=== PATIENT | female | born 1955 | race Caucasian/White ===

== ENCOUNTER 2019-08-01 16:37 | Observation (INO) | payer BC ==
--- NOTE | 2019-08-01 17:18 | ERPHSYRPT ---
- History of Present Illness Time Seen by Provider: 08/01/19 17:18 Historian: patient Exam Limitations: no limitations Patient Subjective Stated Complaint: pt here for right sided abd pain since yesterday, with some nausea, no vomiting, decrease eating today,no fever. pt has ring worm now Triage Nursing Assessment: pt alert, skin w/d/p. resp easy, skin w/d/p. abd soft but tneder to right side, no edema , moves all ext well Physician History: Is a 63-year-old white female who presents with 1 day history of worsening right side abdominal pain. The point of maximal tenderness is in the right lower quadrant at McBurney's point. Patient has had nausea but no vomiting. She patient has had a bilateral tubal ligation in the past but the remainder of her organs are still in place. Is had associated decreased appetite. Denies diarrhea, she denies fever, she denies flulike symptoms. Timing/Duration: yesterday Activities at Onset: none Quality: pressure, sharpness, stabbing Abdominal Pain Onset Location: RLQ Pain Radiation: no radiation Severity of Pain-Max: moderate Severity of Pain-Current: moderate Modifying Factors: Improves With: nothing Associated Symptoms: loss of appetite, nausea, No fever/chills Previous symptoms: no prior history Allergies/Adverse Reactions: aspirin Allergy (Verified 08/01/19 17:11) Penicillins Allergy (Verified 08/01/19 17:11) Sulfa (Sulfonamide Antibiotics) Allergy (Verified 08/01/19 17:11) Home Medications: No Reportable Medications [No Reported Medications] 08/01/19 [History] Hx Tetanus, Diphtheria Vaccination/Date Given: No Hx Influenza Vaccination/Date Given: No Hx Pneumococcal Vaccination/Date Given: No Immunizations Up to Date: Yes - Review of Systems Constitutional: No Symptoms Eyes: No Symptoms Ears, Nose, & Throat: No Symptoms Respiratory: No Symptoms Cardiac: No Symptoms Abdominal/Gastrointestinal: Abdominal Pain, Nausea Genitourinary Symptoms: No Symptoms Musculoskeletal: No Symptoms Skin: No Symptoms Neurological: No Symptoms Psychological: No Symptoms Endocrine: No Symptoms Hematologic/Lymphatic: No Symptoms Immunological/Allergic: No Symptoms All Other Systems: Reviewed and Negative - Past Medical History Pertinent Past Medical History: No Neurological History: No Pertinent History ENT History: No Pertinent History Cardiac History: No Pertinent History Respiratory History: No Pertinent History Endocrine Medical History: No Pertinent History Musculoskeletal History: No Pertinent History GI Medical History: No Pertinent History History: No Pertinent History Psycho-Social History: No Pertinent History Female Reproductive Disorders: No Pertinent History - Past Surgical History Past Surgical History: Yes Neuro Surgical History: No Pertinent History Cardiac: No Pertinent History Respiratory: No Pertinent History Gastrointestinal: No Pertinent History Genitourinary: No Pertinent History Musculoskeletal: No Pertinent History Female Surgical History: Tubal Ligation - Social History Smoking Status: Former smoker Exposure to second hand smoke: No Drug Use: none Patient Lives Alone: Yes - Female History Hx Last Menstrual Period: post Hx Now: No - Nursing Vital Signs Nursing Vital Signs: Initial Vital Signs Temperature 98.5 F 08/01/19 16:58 Pulse Rate 81 08/01/19 16:58 Respiratory Rate 16 08/01/19 16:58 Blood Pressure 121/90 08/01/19 16:58 O2 Sat by Pulse Oximetry 100 08/01/19 16:58 Pain Scale Pain Intensity 8 - Physical Exam General Appearance: mild distress, alert Eye Exam: PERRL/EOMI, eyes nml inspection Ears, Nose, Throat Exam: normal ENT inspection, moist mucous membranes Neck Exam: normal inspection, non-tender, supple, full range of motion Respiratory Exam: normal breath sounds, lungs clear, airway intact, No chest tenderness, No respiratory distress Cardiovascular Exam: regular rate/rhythm, normal heart sounds, normal peripheral pulses Gastrointestinal/Abdomen Exam: soft, normal bowel sounds, tenderness, guarding ( Quadrant), rebound (Lower quadrant) Pelvic Exam: not done Rectal Exam: not done Back Exam: normal inspection, normal range of motion, No CVA tenderness, No vertebral tenderness Extremity Exam: normal inspection, normal range of motion, pelvis stable Neurologic Exam: alert, oriented x 3, cooperative, classifier tender II-XII nml as tested Skin Exam: normal color, warm, dry Lymphatic Exam: No adenopathy SpO2 Interpretation: normal SpO2: 100 O2 Delivery: Room Air Ordered Tests: Active Orders 24 hr Category Date Time Status IV Insertion STAT Care 08/01/19 18:07 Active ABDOMEN AND PELVIS W/0 CONTRAS [CT] Stat Exams 08/01/19 18:07 Taken AMYLASE Stat Lab 08/01/19 19:01 Completed CBC W DIFF Stat Lab 08/01/19 19:01 Completed CMP Stat Lab 08/01/19 19:01 Completed LIPASE Stat Lab 08/01/19 19:01 Completed Lactic Acid Stat Lab 08/01/19 18:55 Completed UA W/RFX UR CULTURE Stat Lab 08/01/19 19:25 Completed Transfer Order Routine Transfer 08/01/19 Ordered Medication Summary Discontinued Medications Generic Name Dose Route Start Last Admin Trade Name Elizabeth PRN Reason Stop Dose Admin Hydromorphone HCl 0.5 mg 08/01/19 18:07 08/01/19 19:30 Hydromorphone 1 Mg/Ml Ampule IV 08/01/19 18:08 0.5 mg STAT ONE Administration Hydromorphone HCl Confirm 08/01/19 19:27 Hydromorphone 1 Mg/Ml Ampule Administered 08/01/19 19:28 Dose 1 mg .ROUTE .STK-MED ONE Sodium Chloride 1,000 mls @ 999 mls/hr 08/01/19 18:07 08/01/19 19:29 Sodium Chloride 0.9% 1000 Ml IV 08/01/19 19:07 999 mls/hr .Q1H1M STA Administration Cefoxitin Sodium 1 g in 50 mls @ 100 mls/hr 08/01/19 19:06 08/01/19 19:55 Mefoxin 1 Gm/ D5w 50 Ml IV 08/01/19 19:35 100 mls/hr STAT STA 100 mls/hr Administration Sodium Chloride Confirm 08/01/19 19:27 Sodium Chloride 0.9% 1000 Ml Administered 08/01/19 19:28 Dose 1,000 mls @ ud .ROUTE .STK-MED ONE Ondansetron HCl 4 mg 08/01/19 18:07 08/01/19 19:30 Zofran 4 Mg/2 Ml Vial IV 08/01/19 18:08 4 mg STAT ONE Administration Ondansetron HCl Confirm 08/01/19 19:26 Zofran 4 Mg/2 Ml Vial Administered 08/01/19 19:27 Dose 4 mg .ROUTE .STK-MED ONE Lab/Rad Data: Laboratory Result Diagrams 08/01/19 19:01 08/01/19 19:01 Laboratory Results 08/01/19 08/01/19 08/01/19 Range/Units 19:25 19:01 19:01 WBC 14.3 H (4.0-10.5) K/mm3 RBC 5.00 (4.1-5.4) M/mm3 Hgb 14.7 (12.0-16.0) gm/dl Hct 43.3 (35-47) % MCV 86.6 (78-100) fl MCH 29.4 (26-32) pg MCHC 33.9 (32-36) g/dl RDW 13.2 (11.5-14.0) % Plt Count 191 (150-450) K/mm3 MPV 9.4 (7.5-11.0) fl Gran % 81.1 H (36.0-66.0) % Eos # (Auto) 0.03 (0-0.5) Absolute Lymphs (auto) 1.64 (1.0-4.6) Absolute Monos (auto) 1.02 (0.0-1.3) Lymphocytes % 11.5 L (24.0-44.0) % Monocytes % 7.1 (0.0-12.0) % Eosinophils % 0.2 (0.00-5.0) % Basophils % 0.1 (0.0-0.4) % Absolute Granulocytes 11.61 H (1.4-6.9) Basophils # 0.02 (0-0.4) Sodium 137 (137-145) mmol/L Potassium 4.0 (3.5-5.1) mmol/L Chloride 106 (98-107) mmol/L Carbon Dioxide 24 (22-30) mmol/L Anion Gap 10.9 (5-15) MEQ/L BUN 19 H (7-17) mg/dL Creatinine 0.74 (0.52-1.04) mg/dL Estimated GFR > 60.0 ML/MIN Glucose 105 (74-106) mg/dL Lactic Acid (0.4-2.0) Calcium 8.9 (8.4-10.2) mg/dL Total Bilirubin 0.70 (0.2-1.3) mg/dL AST 25 (14-36) U/L ALT 18 (0-35) U/L Alkaline Phosphatase 114 (38-126) U/L Serum Total Protein 7.4 (6.3-8.2) g/dL Albumin 4.2 (3.5-5.0) g/dL Amylase 77 (30-110) U/L Lipase 111 (23-300) U/L Urine Color YELLOW (YELLOW) Urine Appearance SLIGHTLY CLOUDY (CLEAR) Urine pH 6.0 (5-6) Ur Specific Loraine 1.025 (1.005-1.025) Urine Protein NEGATIVE (Negative) Urine Ketones TRACE (NEGATIVE) Urine Blood NEGATIVE (0-5) Trent/ul Urine Nitrite NEGATIVE (NEGATIVE) Urine Bilirubin NEGATIVE (NEGATIVE) Urine Urobilinogen 2 (0-1) mg/dL Ur Leukocyte Esterase TRACE (NEGATIVE) Urine WBC (Auto) 3-5 (0-5) /HPF Urine RBC (Auto) 3-5 (0-2) /HPF U Epithel Cells (Auto) RARE (FEW) /HPF Urine Bacteria (Auto) RARE (NEGATIVE) /HPF Calcium Oxalate Crystal 11-25 (NEGATIVE) /HPF Urine Mucus (Auto) SLIGHT (NEGATIVE) /HPF Urine Culture Reflexed NO (NO) Urine Glucose NEGATIVE (NEGATIVE) mg/dL 08/01/19 Range/Units 18:55 WBC (4.0-10.5) K/mm3 RBC (4.1-5.4) M/mm3 Hgb (12.0-16.0) gm/dl Hct (35-47) % MCV (78-100) fl MCH (26-32) pg MCHC (32-36) g/dl RDW (11.5-14.0) % Plt Count (150-450) K/mm3 MPV (7.5-11.0) fl Gran % (36.0-66.0) % Eos # (Auto) (0-0.5) Absolute Lymphs (auto) (1.0-4.6) Absolute Monos (auto) (0.0-1.3) Lymphocytes % (24.0-44.0) % Monocytes % (0.0-12.0) % Eosinophils % (0.00-5.0) % Basophils % (0.0-0.4) % Absolute Granulocytes (1.4-6.9) Basophils # (0-0.4) Sodium (137-145) mmol/L Potassium (3.5-5.1) mmol/L Chloride (98-107) mmol/L Carbon Dioxide (22-30) mmol/L Anion Gap (5-15) MEQ/L BUN (7-17) mg/dL Creatinine (0.52-1.04) mg/dL Estimated GFR ML/MIN Glucose (74-106) mg/dL Lactic Acid 1.0 (0.4-2.0) Calcium (8.4-10.2) mg/dL Total Bilirubin (0.2-1.3) mg/dL AST (14-36) U/L ALT (0-35) U/L Alkaline Phosphatase (38-126) U/L Serum Total Protein (6.3-8.2) g/dL Albumin (3.5-5.0) g/dL Amylase (30-110) U/L Lipase (23-300) U/L Urine Color (YELLOW) Urine Appearance (CLEAR) Urine pH (5-6) Ur Specific Loraine (1.005-1.025) Urine Protein (Negative) Urine Ketones (NEGATIVE) Urine Blood (0-5) Trent/ul Urine Nitrite (NEGATIVE) Urine Bilirubin (NEGATIVE) Urine Urobilinogen (0-1) mg/dL Ur Leukocyte Esterase (NEGATIVE) Urine WBC (Auto) (0-5) /HPF Urine RBC (Auto) (0-2) /HPF U Epithel Cells (Auto) (FEW) /HPF Urine Bacteria (Auto) (NEGATIVE) /HPF Calcium Oxalate Crystal (NEGATIVE) /HPF Urine Mucus (Auto) (NEGATIVE) /HPF Urine Culture Reflexed (NO) Urine Glucose (NEGATIVE) mg/dL - Progress Progress: improved, pain not gone completely, re-examined Progress Note: 08/01/19 19:36 CAT scan has findings consistent with acute appendicitis with enlarged/inflamed appendix and periappendiceal stranding. 08/01/19 19:[address] Candelario Wang who is covering for general surgery. I reviewed the patient's history, condition, laboratory data and CAT scan findings. Patient will be admitted to the hospital placed in observation. Dr. Wang agrees with cefoxitin antibiotic and IV hydration. Patient will be maintained n.p.o. status. And Dr. Wang will see the patient sometime this evening and make arrangements for surgical intervention. Counseled pt/family regarding: lab results, diagnosis, need for follow-up, rad results - Departure Departure Disposition: Home, Observation Clinical Impression: Acute appendicitis Condition: Stable Critical Care Time: No Referrals: AURORA JONES DO [Primary Care Provider] -
[2019-08-01] MEDS ORDERED: Hydromorphone 1 mg/ml Ampule IV ONE ×2 (18:07→20:50)
[2019-08-01] MEDS ORDERED: Sodium Chloride 0.9% 1000 ML 1,000 ML IV STA (18:07)
[2019-08-01] MEDS ORDERED: Zofran 4 MG/2 ML VIAL IV ONE (18:07)
[2019-08-01 19:02] LABS: Absolute Neutrophil Ct (ANC) 11.61 (1.4-6.9); BASOPHIL % 0.1 % (0.0-0.4); Basophil (Absolute #) 0.02 (0-0.4); Eosinophil % 0.2 % (0.00-5.0); Eosinophil (Absolute #) 0.03 (0-0.5); Hematocrit 43.3 % (35-47); Hemoglobin 14.7 gm/dl (12.0-16.0); Lymphocyte (Absolute #) 1.64 (1.0-4.6); Lymphocytes % 11.5 % (24.0-44.0); Mean Cell Volume 86.6 fl (78-100); Mean Corpuscular Hemoglobin 29.4 pg (26-32); Mean Corpuscular Hgb Concent. 33.9 g/dl (32-36); Mean Platelet Volume 9.4 fl (7.5-11.0); Monocyte (Absolute #) 1.02 (0.0-1.3); Monocytes % 7.1 % (0.0-12.0); Neutrophil % 81.1 % (36.0-66.0); Platelet Count 191 K/mm3 (150-450); Red Cell Distribution Width 13.2 % (11.5-14.0); White Blood Count 14.3 K/mm3 (4.0-10.5)
[2019-08-01] MEDS ORDERED: MEFOXIN 1 Gm/ D5W 50 Ml** 1 G/50 ML ML IV STA ×2 (19:06→21:00)
[2019-08-01 19:13] LABS: ALBUMIN 4.2 g/dL (3.5-5.0); ALKALINE PHOSPHATASE 114 U/L (38-126); AMYLASE 77 U/L (30-110); ANION GAP 10.9 MEQ/L (5-15); BLOOD UREA NITROGEN 19 mg/dL (7-17); CHLORIDE 106 mmol/L (98-107); Calcium 8.9 mg/dL (8.4-10.2); Carbon Dioxide 24 mmol/L (22-30); Creatinine 1 0.74 mg/dL (0.52-1.04); Glucose 105 mg/dL (74-106); LIPASE 111 U/L (23-300); SGOT/AST 25 U/L (14-36); SGPT/ALT 18 U/L (0-35); SODIUM 137 mmol/L (137-145); Total Protein 7.4 g/dL (6.3-8.2)
[2019-08-01] MEDS ORDERED: Zofran 4 MG/2 ML VIAL ONE ×2 (19:26→21:58)
[2019-08-01] MEDS ORDERED: Sodium Chloride 0.9% 1000 ML 1,000 ML ONE (19:27)
[2019-08-01] MEDS ORDERED: Hydromorphone 1 mg/ml Ampule ONE ×2 (19:27→21:23)
[2019-08-01 19:32] LABS: Appearance SLIGHTLY CLOUDY (CLEAR); Bacteria RARE /HPF (NEGATIVE); Bilirubin NEGATIVE (NEGATIVE); Blood NEGATIVE Ery/ul (0-5); Epithelial Cells RARE /HPF (FEW); Glucose NEGATIVE (NEGATIVE); Ketones TRACE (NEGATIVE); Leukocyte Esterase TRACE (NEGATIVE); Mucus SLIGHT /HPF (NEGATIVE); Nitrite NEGATIVE (NEGATIVE); Protein,Urine Dip NEGATIVE (Negative); Specific Gravity 1.025 (1.005-1.025); Urobilinogen 2 mg/dL (0-1)
[2019-08-01] MEDS ORDERED: Lactated Ringers 1,000 ML IV ONE ×3 (21:00→22:22)
--- NOTE | 2019-08-01 21:17 | XRAY ---
Indication: Right lower quadrant pain. Nausea and chills. Multiple contiguous axial images obtained through the abdomen and pelvis without contrast as ordered. Comparison: None Lung bases are clear. Heart is not enlarged. Noncontrasted stomach and bowel loops appear nonobstructed. Appendix is prominent up to 12 mm diameter with periappendiceal stranding favoring acute appendicitis. Also 7-8 mm appendicolith. No free fluid/air. There is mild diffuse scattered colonic fecal debris throughout. Liver demonstrates at least 3 CT proven cysts, largest measuring 1.5 cm. Remaining liver, gallbladder, pancreas, spleen, adrenal glands, kidneys, ureters, bladder, and uterus appear unremarkable for noncontrast exam. Minimal aortic calcifications without AAA. Osseous structures intact. No ventral or inguinal hernias. Impression: 1. CT features as detailed favoring acute appendicitis with appendicolith. No complications. 2. Incidental diffuse fecal stasis and hepatic cysts.
[2019-08-01] MEDS ORDERED: DIPRIVAN 200 MG/20 ML IV ONE (21:47)
[2019-08-01] MEDS ORDERED: SUBLIMAZE 100 MCG/2 ML ONE ×2 (21:47→23:00)
[2019-08-01] MEDS ORDERED: Quelicin Fliptop 200 MG/10 ML ONE (21:47)
[2019-08-01] MEDS ORDERED: Zemuron 100 MG/10 ML ONE ×2 (21:47→22:19)
[2019-08-01] MEDS ORDERED: Sensorcaine 0.25% 10 ML ONE (21:57)
[2019-08-01] MEDS ORDERED: BRIDION 200MG/2ML IV ONE (21:58)
[2019-08-01] MEDS ORDERED: TORAdol 30 mg Injection ONE (21:58)
[2019-08-01] MEDS ORDERED: Decadron 4 MG INJ ONE (21:58)
[2019-08-01] MEDS ORDERED: Sodium Chloride 0.9% 1000 ML 1,000 ML IV SCH (23:31)
[2019-08-01] MEDS ORDERED: Zofran 4 MG/2 ML VIAL IV PRN (23:31)
[2019-08-01] MEDS ORDERED: DILAUDID 2 MG INJECTION IV PRN (23:31)
[2019-08-02] MEDS ORDERED: MORPHINE SULFATE 2 MG INJ IV PRN (00:30)
[2019-08-02] MEDS: Dextrose 5% -0.45 NaCl 1000 ML 1,000 ML IV SCH ×3 (00:42→17:52)
[2019-08-02] MEDS: MEFOXIN 2 GM PREMIX** 2 GM/50 ML ML IV SCH ×3 (04:55→20:29)
[2019-08-02 05:03] LABS: Absolute Neutrophil Ct (ANC) 16.07 (1.4-6.9); BASOPHIL % 0.1 % (0.0-0.4); Basophil (Absolute #) 0.01 (0-0.4); Eosinophil % 0.1 % (0.00-5.0); Eosinophil (Absolute #) 0.01 (0-0.5); Hematocrit 39.7 % (35-47); Hemoglobin 13.1 gm/dl (12.0-16.0); Lymphocyte (Absolute #) 0.71 (1.0-4.6); Lymphocytes % 4.1 % (24.0-44.0); Mean Platelet Volume 9.4 fl (7.5-11.0); Monocyte (Absolute #) 0.71 (0.0-1.3); Monocytes % 4.1 % (0.0-12.0); Neutrophil % 91.6 % (36.0-66.0); Platelet Count 168 K/mm3 (150-450); Red Blood Count 4.51 M/mm3 (4.1-5.4); Red Cell Distribution Width 13.2 % (11.5-14.0); White Blood Count 17.5 K/mm3 (4.0-10.5)
[2019-08-02 05:04] LABS: ANION GAP 7.7 MEQ/L (5-15); BLOOD UREA NITROGEN 12 mg/dL (7-17); CHLORIDE 109 mmol/L (98-107); Calcium 8.4 mg/dL (8.4-10.2); Carbon Dioxide 24 mmol/L (22-30); Creatinine 1 0.52 mg/dL (0.52-1.04); Glucose 186 mg/dL (74-106); Potassium 4.1 mmol/L (3.5-5.1); SODIUM 136 mmol/L (137-145)
[2019-08-02] MEDS ORDERED: TYLENOL 325 MG PO PRN (07:56)
[2019-08-02] MEDS ORDERED: FEVERALL 650 MG RC PRN (07:57)
[2019-08-02] MEDS: Nizoral CREAM TP SCH ×2 (09:43→20:33)
[2019-08-02] MEDS ORDERED: ENOXAPARIN SODIUM SQ SCH (12:00)
[2019-08-02] MEDS: NORCO 5/325 MG PO PRN ×2 (12:22→20:29)
[2019-08-03] MEDS: Dextrose 5% -0.45 NaCl 1000 ML 1,000 ML IV SCH (02:17)
[2019-08-03] MEDS: NORCO 5/325 MG PO PRN (02:45)
[2019-08-03 08:42] VITALS: BP 128/64; PULSE 69; O2SAT 98
--- NOTE | 2019-08-04 10:11 | HP ---
HISTORY: This is a 63 year-old female who said that yesterday morning at work her upper abdomen started hurting her. She said that today she went out to eat with a friend. Her pain seemed to move towards the right lower quadrant. She is not having any nausea or vomiting. She is not having any bleeding. She is not having any other symptoms but she does have significant right lower quadrant pain that has worsened. PAST MEDICAL/SURGICAL HISTORY: Includes early emphysema and history of tubal ligation. MEDICATIONS: Medications reviewed in the chart in medication reconciliation. ALLERGIES: ASPIRIN. PENICILLIN. SULFA. SOCIAL HISTORY: She quit tobacco in 2008, approximately 35 pack year smoking history. FAMILY HISTORY: Noncontributory. LAB DATA AND TESTS: Laboratories and vital signs are reviewed in the emergency room. The patient's laboratory studies are all essentially within normal limits except for an elevated white count 14. She also had a CT scan. Her preliminary studies have shown acute appendicitis with a 12 mm dilated appendix, periappendiceal inflammatory stranding. No obvious fluid collections. She does have incidental cysts in her liver. PHYSICAL EXAMINATION: GENERAL: No acute distress. CVS: Regular rate and rhythm. PULMONARY: Nonlabored respirations. ABDOMEN: Soft, tender to palpation in right lower quadrant with rebound. Abdomen is nondistended. EXTREMITIES: Normal. She has two spots of recurrent ringworm in her upper groin which she is treating with antifungal. Otherwise the patient takes no other medication except for Krill oil and vitamins. ASSESSMENT AND PLAN: This is a 63 year-old female with acute appendicitis. Planning for laparoscopic possible open appendectomy. I did discuss with the patient all of the procedure details as well as the risks, benefits and alternatives. She would like to proceed with surgery and we will take her to surgery now.
--- NOTE | 2019-08-18 09:57 | OP ---
SURGERY DATE/TIME: 08/01/20192145 PREOPERATIVE DIAGNOSIS: Acute appendicitis. POSTOPERATIVE DIAGNOSIS: Acute purulent appendicitis. PROCEDURE: Laparoscopic appendectomy. SURGEON: Brooklynn Wang M.D. QUALITY ASSURANCE QA LAB ANALYST: Candelario Wang M.D. ANESTHESIA: General. ESTIMATED BLOOD LOSS: Minimal less than 10 cc. COMPLICATIONS: None. SPECIMEN: Appendix. INDICATION: This is a 63 year-old female evaluated emergently in the emergency room due to abdominal pain and findings acute appendicitis on CT scan. Her clinical findings were consistent with acute appendicitis. We discussed the risks, benefits, alternatives regarding laparoscopic possible open appendectomy. She understands and agrees and wanted to proceed. DESCRIPTION OF PROCEDURE: The patient was then brought back to the operative suite. Anesthesia was induced. Prepped and draped in usual sterile fashion. A complete time out performed. OG tube inserted. Stomach desufflated. We then made periumbilical incision to gain access to the abdominal cavity using a Veress needle. No issues. Abdomen was easily insufflated. A 5 mm optical port placed under direct visualization. Two - 5 ports placed along the left side under visualization and the periumbilical port upsized to a 12 port. We were able to identify the appendix. There was some free fluid this was suctioned free. There was some purulence around the appendix and actually quite significant reaction. The appendix definitely looked to have appendicitis. The base at the cecum appeared to be healthy. We carefully freed this, took the mesentery with the LigaSure and then stapled along the base onto the cecum. The staple line looked nice and healthy. We irrigated after removing the appendix from the abdomen to remove the appendix. We placed it in a bag and completely removed it from the abdomen and sent it to pathology. Everything looked satisfactory. We closed the 12 port with 0 Vicryl laparoscopic suture. We then insured good hemostasis. No other significant findings identified. The abdomen was then desufflated. We then irrigated the incisions and closed with buried 4-0 Monocryl, Steri-Strips and sterile dressing. The patient tolerated the procedure very well. There were no immediate complications.
== END 2019-08-03 10:15 | disposition home or self-care (01) ==
LOC: ED 16:37 → MED SURG 23:25
PROVIDERS: ADMIT Surgery; ATTEND Surgery
DX: K35.80 Unspecified acute appendicitis (principal)
CPT/HCPCS: 36000; 36415; 44970; 74176; 80048; 80053; 81001; 82150; 83605; 83690; 85025; 94762; 96360; 96361; 96365; 96366; 96374; 96375; 96376; 99285; G0378; 99140; J0330; J0694; J1100; J1170; J1885; J2270; J2405; J2704; J3010; A9270-GY

== ENCOUNTER 2020-05-03 09:42 | Day surgery (SDC) | payer BC ==
[2020-05-03] MEDS ORDERED: Lactated Ringers 1,000 ML IV ONE ×2 (09:44→13:33)
[2020-05-03] MEDS ORDERED: Lactated Ringers 1,000 ML IV SCH (10:00)
[2020-05-03] MEDS ORDERED: DIPRIVAN 200 MG/20 ML IV ONE ×2 (12:48)
[2020-05-03] MEDS ORDERED: ROBINUL ONE (12:49)
[2020-05-03 14:31] VITALS: PULSE 73
[2020-05-03 14:44] VITALS: BP 130/72; O2SAT 99
--- NOTE | 2020-05-04 08:28 | OP ---
PROCEDURE DATE/TIME: 05/03/2020 1252 PREOPERATIVE DIAGNOSIS: Screening. POSTOPERATIVE DIAGNOSIS: Mild diverticulosis and colonic polyp. PROCEDURE: Colonoscopy with hot snare polypectomy and hot forceps polypectomy x2. PROCEDURE PERFORMED BY: Brooklynn Wang M.D. COMPLICATIONS: None. ESTIMATED BLOOD LOSS: Minimal. ANESTHESIA: MAC. SPECIMEN: Rectosigmoid polyp and a sessile cecal polyp. HISTORY: This is a patient who presents for screening colonoscopy. Risks, benefits, alternatives, H&P and consent have been reviewed and confirmed with the patient. Any remaining questions answered. DESCRIPTION OF PROCEDURE: She was then brought back to the operative suite and laid in left lateral decubitus position. A complete time out performed. First a rectal exam was done. No significant abnormalities other than minimal hemorrhoidal disease. The scope was then inserted and gently advanced to the level of the cecum. The patient did have a slightly tortuous sigmoid colon. She did have a moderate amount of liquid stool throughout her colon. She did have a very small amount of solid stool from the diverticula. When we arrived at the cecum I was able to thoroughly irrigate. The patient has had an appendectomy. However immediately at the periphery of her appendiceal orifice there was a sessile polypoid lesion this was encircled with a hot snare. This did look more like a polyp than just scar tissue. It was encircled by the hot snare and it was taken in entirety and sent to pathology. There was a small area laterally to this that looked like potential polypoid remnant tissue and so I took this with a hot forceps in entirety and sent this. I do not see any obvious remaining gross lesions but I will plan another colonoscopy in approximately six months because the borders of this polyp were very irregular and vague. We will also base our plan on her final pathology report. We were able to suction the material through the trap and submit this to pathology. Due to the size of the polypoid lesion approximately 1 x 1.5 cm, I did place a clip to insure post-procedure hemostasis and everything looked excellent with good hemostasis immediately post-procedure. We then carefully retrieved the scope. I did not find any other polyp until the level of the rectosigmoid. In the rectosigmoid region there were two small polyps. These were taken with hot forceps in entirety and sent to pathology. Site hemostatic. The scope was fully withdrawn. The patient had mild diverticulosis, polyps.
== END 2020-05-03 14:56 | disposition home or self-care (01) ==
LOC: SDC 09:42
PROVIDERS: ATTEND Surgery
DX: Z12.11 Encounter for screening for malignant neoplasm of colon (principal); K57.30 Diverticulosis of large intestine without perforation or abscess without bleeding; K63.5 Polyp of colon
CPT/HCPCS: J2704

== ENCOUNTER 2020-10-18 12:01 | Emergency (ER) | payer BC ==
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
[2020-10-18 13:10] VITALS: BP 145/94; PULSE 84
[2020-10-18 13:16] VITALS: O2SAT 98
== END 2020-10-18 14:02 | disposition home or self-care (01) ==
LOC: ED 12:01
DX: J01.90 Acute sinusitis, unspecified (principal)
CPT/HCPCS: 87651; 99283

== ENCOUNTER 2025-02-10 23:39 | Emergency (ER) | payer BC ==
[2025-02-10 23:48] VITALS: TEMP 96.7
[2025-02-11] MEDS: Zofran 4 MG/2 ML VIAL IV ONE (00:12)
--- NOTE | 2025-02-11 00:29 | ERPHSYRPT ---
- History of Present Illness Time Seen by Provider: 02/10/25 23:55 Historian: patient, EMS Exam Limitations: no limitations Patient Subjective Stated Complaint: "I've been sick for about an hour. I have vago-vaso syncope. I've been doing a bowel prep for a colonoscopy and couldn't keep it down." Triage Nursing Assessment: Pt presents to ER with complaints of nausea and vomiting for the past hour. Pt is doing a bowel prep for a colonoscopy and she was unable to keep it down. Pt was having a colonoscopy, just as routine. Pt appears pale, cool, and generally weak all over. Pt is incontient of liquid stool. Pt states she vomited approx 4 times DIRECTOR WHOLESALE within the past hour. Pt respirations are easy. Pt is resting with eyes closed. Rates abdominal pain 4/10 scale. States pain is just from the nausea she is experiencing. Physician History: This is a 69-year-old white female patient of Dr. 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 The patient was on clear liquid diet today and was taking bowel prep for colonoscopy scheduled on 02/11/2025. She began having nausea and vomiting at approximately 11 PM. This induced a vasovagal syncopal episode. Patient states she feels very weak. She has no chest pain. She has no shortness of breath. She has no abdominal pain. She has clear watery diarrhea symptoms. Timing/Duration: today Activities at Onset: other (Taking and clear liquids and bowel prep) Quality: cramping (Mild generalized) Abdominal Pain Onset Location: generalized abdomen Pain Radiation: no radiation Severity of Pain-Max: mild Severity of Pain-Current: mild Modifying Factors: Improves With: nothing Associated Symptoms: diarrhea (Watery), loss of appetite, nausea, shortness of breath, syncope (Vasovagal. 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" Penicillins Allergy (Unknown, Verified 02/10/25 23:48) Home Medications: Ca/D3/Mag Ox/Zinc/Line Haul Owner Operator/Rubio/Bor [Calcium 600-D3 Plus Caplet] 1 tab PO DAILY 10/10/24 [History] Calcium Carbonate/Mag Carb [Magnebind 400 Tablet] 1 tab PO DAILY 10/10/24 [History] Fish Oil/Borage/Flax/Om3,6,9 1 [[place] 3-6-9 Complex Softgel] 1 cap PO DAILY 10/10/24 [History] Mecobalamin [B12 Active] 1 tab PO DAILY 10/10/24 [History] Ubidecarenone/Vit E Acet [Co Q-10 100 mg Softgel] 1 cap PO DAILY 10/10/24 [History] Zinc Gluconate [Zinc] 50 mg PO DAILY 10/10/24 [History] Hx Tetanus, Diphtheria Vaccination/Date Given: No Hx Influenza Vaccination/Date Given: No Hx Pneumococcal Vaccination/Date Given: No Immunizations Up to Date: No Travel Risk - International Travel Have you traveled outside of the country in past 3 weeks: No - Emerging Infectious Disease Are you exhibiting symptoms associated with any current EIDs: Yes Symptoms: Vomitting - Review of Systems Constitutional: Weakness Eyes: No Symptoms Ears, Nose, & Throat: No Symptoms Respiratory: No Symptoms Cardiac: No Symptoms Abdominal/Gastrointestinal: Nausea, Vomiting, Diarrhea Genitourinary Symptoms: No Symptoms Musculoskeletal: No Symptoms Skin: No Symptoms Neurological: No Symptoms Psychological: No Symptoms Endocrine: No Symptoms Hematologic/Lymphatic: No Symptoms Immunological/Allergic: No Symptoms All Other Systems: Reviewed and Negative - Past Medical History Pertinent Past Medical History: No Neurological History: No Pertinent History ENT History: No Pertinent History Cardiac History: No Pertinent History Respiratory History: COPD, Emphysema Endocrine Medical History: No Pertinent History Musculoskeletal History: No Pertinent History GI Medical History: No Pertinent History History: No Pertinent History Psycho-Social History: No Pertinent History Female Reproductive Disorders: No Pertinent History Other Medical History: VAGO-VASAL SYNCOPE. vertigo. Emphysema in upper part of lungs - Past Surgical History Past Surgical History: Yes Neuro Surgical History: No Pertinent History Cardiac: No Pertinent History Respiratory: No Pertinent History Gastrointestinal: Appendectomy Genitourinary: No Pertinent History Musculoskeletal: No Pertinent History Female Surgical History: Tubal Ligation - Social History Smoking Status: Former smoker Exposure to second hand smoke: No Drug Use: none - Social Determinants of Health Will the patient participate in the screening: Yes Do you worry about a steady place to live?: No Do you have any problems with any of the following?: No known problems In the past 12 months,have you had to go without utilities?: No Transportation Issues: No Has anyone in your support network made you feel unsafe?: No Have you or anyone in your house had to go w/o enough food: No - Nursing Vital Signs Nursing Vital Signs: Initial Vital Signs Temperature 96.7 F 02/10/25 23:41 Pulse Rate 67 02/10/25 23:41 Respiratory Rate 18 02/10/25 23:41 Blood Pressure 137/73 02/10/25 23:41 O2 Sat by Pulse Oximetry 99 02/10/25 23:41 Pain Scale Pain Intensity 0 - Physical Exam General Appearance: mild distress, alert, anxiety, thin Eye Exam: PERRL/EOMI, eyes nml inspection Ears, Nose, Throat Exam: normal ENT inspection, moist mucous membranes Neck Exam: normal inspection, non-tender, supple, full range of motion Respiratory Exam: normal breath sounds, lungs clear, airway intact, No chest tenderness, No respiratory distress Cardiovascular Exam: regular rate/rhythm, normal heart sounds, normal peripheral pulses Gastrointestinal/Abdomen Exam: soft, normal bowel sounds, No tenderness Pelvic Exam: not done Rectal Exam: not done Back Exam: normal inspection, normal range of motion, No CVA tenderness, No vertebral tenderness Extremity Exam: normal inspection, normal range of motion, pelvis stable Neurologic Exam: alert, oriented x 3, cooperative, envelope adjuster II-XII nml as tested Skin Exam: normal color, warm, dry Lymphatic Exam: No adenopathy SpO2 Interpretation: normal SpO2: 96 O2 Delivery: Room Air - Course Nursing assessment & vital signs reviewed: Yes Ordered Tests: Active Orders 24 hr Category Date Time Status EKG-ER Only STAT Care 02/11/25 00:22 Active IV Insertion STAT Care 02/11/25 00:04 Active AMYLASE Stat Lab 02/11/25 00:29 Completed CBC W DIFF Stat Lab 02/11/25 00:29 Completed CMP Stat Lab 02/11/25 00:29 Completed CULTURE,URINE Stat Lab 02/11/25 00:07 Received LIPASE Stat Lab 02/11/25 00:29 Completed MAG [MAGNESIUM] Stat Lab 02/11/25 00:29 Completed UA W/RFX UR CULTURE Stat Lab 02/11/25 00:07 Completed Medication Summary Discontinued Medications Generic Name Dose Route Start Last Admin Trade Name Elizabeth PRN Reason Stop Dose Admin Sodium Chloride 1,000 mls @ 999 mls/hr 02/11/25 00:04 02/11/25 01:13 Sodium Chloride 0.9% 1000 Ml IV 02/11/25 01:04 Infused .Q1H1M STA Infusion Sodium Chloride Confirm 02/11/25 00:07 Sodium Chloride 0.9% 1000 Ml Administered 02/11/25 00:08 Dose 1,000 mls @ ud .ROUTE .STK-MED ONE Lactated Ringer's 1,000 mls @ 999 mls/hr 02/11/25 01:12 02/11/25 02:14 Lactated Ringers IV 02/11/25 02:12 Infused .Q1H1M ONE Infusion Lactated Ringer's Confirm 02/11/25 01:14 Lactated Ringers Administered 02/11/25 01:15 Dose 1,000 mls @ ud IV .STK-MED ONE Ondansetron HCl 4 mg 02/11/25 00:04 02/11/25 00:12 Ondansetron Hcl 4 Mg/2 Ml Vial IV 02/11/25 00:05 Not Given STAT ONE Lab/Rad Data: Laboratory Result Diagrams 02/11/25 00:29 02/11/25 00:29 Laboratory Results 02/11/25 02/11/25 02/11/25 Range/Units 00:29 00:29 00:29 WBC 15.9 H (3.98-10.04) x10^3/uL RBC 5.23 H (3.93-5.22) x10^6/uL Hgb 15.2 (11.2-15.7) g/dL Hct 46.8 H (34.1-44.9) % MCV 89.5 (79.4-94.8) fL MCH 29.1 (25.6-32.2) pg MCHC 32.5 (32.2-35.5) g/dL RDW 12.8 (11.7-14.4) % Plt Count 215 (182-369) x10^3/uL MPV 9.1 L (9.4-12.3) fL Gran % 79.5 H (34.0-71.1) % Immature Gran % (Auto) 0.8 H (0.001-0.429) % Nucleat RBC Rel Count 0.0 (0.00-0.2) % Eos # (Auto) 0.13 (0.04-0.36) x10^3/uL Immature Gran # (Auto) 0.13 H (0.001-0.031) x10^3u/L Absolute Lymphs (auto) 2.09 (1.18-3.74) x10^3/uL Absolute Monos (auto) 0.84 (0.24-0.86) x10^3/uL Absolute Nucleated RBC 0.00 (0.00-0.012) x10^3u/L Lymphocytes % 13.1 L (19.3-51.7) % Monocytes % 5.3 (4.7-12.5) % Eosinophils % 0.8 (0.7-5.8) % Basophils % 0.5 (0.1-1.2) % Absolute Granulocytes 12.65 H (1.56-6.13) x10^3/uL Basophils # 0.08 (0.01-0.08) x10^3/uL Sodium 136 (135-145) mmol/L Potassium 3.9 (3.5-5.1) mmol/L Chloride 106 (98-107) mmol/L Carbon Dioxide 20 L (22-30) mmol/L Anion Gap 13.9 (5-15) MEQ/L BUN 10 (7-17) mg/dL Creatinine 0.70 (0.52-1.04) mg/dL Estimated GFR 94.7 ML/MIN Glucose 120 H (74-106) mg/dL Calcium 9.3 (8.4-10.2) mg/dL Magnesium 1.8 (1.6-2.3) mg/dL Total Bilirubin 0.30 (0.2-1.3) mg/dL AST 36 (14-36) U/L ALT 25 (0-35) U/L Alkaline Phosphatase 89 (38-126) U/L Serum Total Protein 8.7 H (6.3-8.2) g/dL Albumin 4.9 (3.5-5.0) g/dL Amylase 85 (30-110) U/L Lipase 98 (23-300) U/L Urine Color (Yellow) Urine Appearance (Clear) Urine pH (4.6-8.0) Ur Specific [place] (1.005-1.030) Urine Protein (Negative) Urine Glucose (UA) (Negative) mg/dL Urine Ketones (Negative) Urine Blood (Negative) Urine Nitrite (Negative) Urine Bilirubin (Negative) Urine Urobilinogen (0.2) mg/dL Ur Leukocyte Esterase (Negative) U Hyaline Cast (Auto) (0-2) /LPF Urine Microscopic RBC (0-5) /HPF Urine Microscopic WBC (0-5) /HPF Ur Epithelial Cells (None Seen) /HPF Urine Bacteria (None Seen) /HPF Urine Culture Reflexed (NO) 02/11/25 Range/Units 00:07 WBC (3.98-10.04) x10^3/uL RBC (3.93-5.22) x10^6/uL Hgb (11.2-15.7) g/dL Hct (34.1-44.9) % MCV (79.4-94.8) fL MCH (25.6-32.2) pg MCHC (32.2-35.5) g/dL RDW (11.7-14.4) % Plt Count (182-369) x10^3/uL MPV (9.4-12.3) fL Gran % (34.0-71.1) % Immature Gran % (Auto) (0.001-0.429) % Nucleat RBC Rel Count (0.00-0.2) % Eos # (Auto) (0.04-0.36) x10^3/uL Immature Gran # (Auto) (0.001-0.031) x10^3u/L Absolute Lymphs (auto) (1.18-3.74) x10^3/uL Absolute Monos (auto) (0.24-0.86) x10^3/uL Absolute Nucleated RBC (0.00-0.012) x10^3u/L Lymphocytes % (19.3-51.7) % Monocytes % (4.7-12.5) % Eosinophils % (0.7-5.8) % Basophils % (0.1-1.2) % Absolute Granulocytes (1.56-6.13) x10^3/uL Basophils # (0.01-0.08) x10^3/uL Sodium (135-145) mmol/L Potassium (3.5-5.1) mmol/L Chloride (98-107) mmol/L Carbon Dioxide (22-30) mmol/L Anion Gap (5-15) MEQ/L BUN (7-17) mg/dL Creatinine (0.52-1.04) mg/dL Estimated GFR ML/MIN Glucose (74-106) mg/dL Calcium (8.4-10.2) mg/dL Magnesium (1.6-2.3) mg/dL Total Bilirubin (0.2-1.3) mg/dL AST (14-36) U/L ALT (0-35) U/L Alkaline Phosphatase (38-126) U/L Serum Total Protein (6.3-8.2) g/dL Albumin (3.5-5.0) g/dL Amylase (30-110) U/L Lipase (23-300) U/L Urine Color Dark Yellow A (Yellow) Urine Appearance Clear (Clear) Urine pH 5.0 (4.6-8.0) Ur Specific [place] 1.020 (1.005-1.030) Urine Protein 300 A (Negative) Urine Glucose (UA) Negative (Negative) mg/dL Urine Ketones Negative (Negative) Urine Blood Trace (Negative) Urine Nitrite Negative (Negative) Urine Bilirubin Negative (Negative) Urine Urobilinogen 0.2 (0.2) mg/dL Ur Leukocyte Esterase Negative (Negative) U Hyaline Cast (Auto) 11-20 (0-2) /LPF Urine Microscopic RBC 6-10 A (0-5) /HPF Urine Microscopic WBC 6-10 A (0-5) /HPF Ur Epithelial Cells Rare (None Seen) /HPF Urine Bacteria None Seen (None Seen) /HPF Urine Culture Reflexed ORDERED SEPARATELY (NO) - Progress Progress: improved, re-examined Progress Note: 02/11/25 00:28 My medical decision making and the assignment of moderate complexity to this patient's medical issue today is based on review of the patient's past medical history, reviewed the patient's medication list, reviewed patient drug allergy list, history present illness and physical findings on examination. The workup in this patient includes infusion of crystalloid solution, CBC, CMP, magnesium level, urinalysis, twelve-lead EKG, amylase and lipase. Differential diagnosis includes was not limited to dehydration, electrolyte abnormalities, vasovagal episode 02/11/25 04:10 I interpreted the patient's laboratory data results. Based on the laboratory data results, there are no acute, emergent medical issues. The clinically, the patient states she is feeling much better after 2 L of fluid. She got up and ambulated and went to use the restroom. She would like to stay until she has to be at the admission registration area at 6 AM to register for her colonoscopy that is scheduled for this morning. Patient does states she is a little sore on the lateral aspect of her ribs. She had been using the restroom when she had a vasovagal episode and thinks she hit the right ribs when she slid off the toilet onto the ground. She does not want any testing done of the ribs. 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 [place] - Follow up/PCP as directed Additional Instructions: Go directly to admission or/registration to reregister for your colonoscopy that is being performed today.
[2025-02-11 00:31] LABS: BASOPHIL % 0.5 % (0.1-1.2); Basophil (Absolute #) 0.08 x10^3/uL (0.01-0.08); Eosinophil (Absolute #) 0.13 x10^3/uL (0.04-0.36); Hematocrit 46.8 % (34.1-44.9); Hemoglobin 15.2 g/dL (11.2-15.7); IMMATURE GRAN # 0.13 x10^3u/L (0.001-0.031); IMMATURE GRAN % 0.8 % (0.001-0.429); Lymphocyte (Absolute #) 2.09 x10^3/uL (1.18-3.74); Mean Corpuscular Hemoglobin 29.1 pg (25.6-32.2); Mean Corpuscular Hgb Concent. 32.5 g/dL (32.2-35.5); Monocyte (Absolute #) 0.84 x10^3/uL (0.24-0.86); NUCLEATED RBC # 0.00 x10^3u/L (0.00-0.012); NUCLEATED RBC % 0.0 % (0.00-0.2); Platelet Count 215 x10^3/uL (182-369); Red Blood Count 5.23 x10^6/uL (3.93-5.22); White Blood Count 15.9 x10^3/uL (3.98-10.04)
[2025-02-11 00:44] LABS: Calcium 9.3 mg/dL (8.4-10.2); Carbon Dioxide 20.0 mmol/L (22-30); Creatinine 1 0.7 mg/dL (0.52-1.04); EST GLOMERULAR FILTRATION RATE 94.7 ML/MIN; Glucose 120.0 mg/dL (74-106); Potassium 3.9 mmol/L (3.5-5.1); SGOT/AST 36.0 U/L (14-36); SGPT/ALT 25.0 U/L (0-35); Total Protein 8.7 g/dL (6.3-8.2)
[2025-02-11 00:44] LABS: Glucose, Urine Negative (Negative); Protein,Urine Dip 300 (Negative)
[2025-02-11] MEDS ORDERED: Lactated Ringers 1,000 ML IV ONE (01:14)
[2025-02-11] MEDS: Lactated Ringers 1,000 ML IV ONE (01:14)
[2025-02-11 04:10] VITALS: BP 118/73; PULSE 76; RESP 18
[2025-02-11 04:14] VITALS: O2SAT 96
== END 2025-02-11 04:15 | disposition home or self-care (01) ==
LOC: ED 23:39
DX: R55 Syncope and collapse (principal); R11.2 Nausea with vomiting, unspecified; R19.7 Diarrhea, unspecified; Z79.899 Other long term (current) drug therapy
CPT/HCPCS: 36415; 80053; 81001; 82150; 83690; 83735; 85025; 87086; 93005; 96360; 96361; 99284; P9612

== ENCOUNTER 2025-02-11 05:44 | Day surgery (SDC) | payer BC ==
[2025-02-11] MEDS ORDERED: Lactated Ringers 1,000 ML IV ONE (06:11)
[2025-02-11 06:34] VITALS: RESP 16
[2025-02-11] MEDS: Lactated Ringers 1,000 ML IV SCH (07:04)
[2025-02-11] MEDS ORDERED: Xylocaine-Mpf 2% 5 Ml Vial ONE (08:06)
[2025-02-11] MEDS ORDERED: propofoL IV ONE ×2 (08:06→08:18)
[2025-02-11] MEDS ORDERED: ROBINUL ONE (08:08)
--- NOTE | 2025-02-11 08:37 | XRAY ---
Indication: Left-sided pain following fall. Comparison: April 20, 2020 PA/lateral chest again hyperinflated and clear with stable right lung calcified granuloma. Heart and mediastinal structures within normal limits. Bony thorax intact again with osteopenia and mild degenerative changes. Impression: Continued nonacute hyperinflated chest with chronic features.
[2025-02-11 09:02] VITALS: BP 150/80; PULSE 70; TEMP 97.2; O2SAT 100
--- NOTE | 2025-02-12 10:21 | OP ---
SURGERY DATE/TIME: 02/11/2025 [id number] PREOPERATIVE DIAGNOSIS: Screening colonoscopy. POSTOPERATIVE DIAGNOSES: 1) Normal colon. 2) Diverticulosis. PROCEDURE: Colonoscopy. SURGEON: Filiberto Koenig MD. ANESTHESIA: MAC by Trent Delaney CRNA. ESTIMATED BLOOD LOSS: None. SPECIMEN: None. DESCRIPTION OF PROCEDURE AND FINDINGS: After informed written consent was obtained, the patient was taken to the endoscopy suite. She was placed in the left lateral decubitus position and anesthesia was titrated to desired level of consciousness. Digital rectal exam showed normal sphincter tone and no internal lesions. The scope was inserted into the rectum and sequentially the entire colonic mucosa was traversed. Level of the cecum was reached and verified with direct visualization of the ileocecal valve. Upon withdrawal, careful mucosal inspection revealed no gross abnormalities other than scattered diverticula. There were no suspicious mucosal lesions, no polyps or any evidence of bleeding from any diverticula. Prior to withdrawal, retroflexion showed no internal lesions. The scope was removed and the patient was transferred to the recovery room in good condition.
== END 2025-02-11 09:14 | disposition home or self-care (01) ==
LOC: SDC 05:44
PROVIDERS: ATTEND Family Medicine
DX: Z12.11 Encounter for screening for malignant neoplasm of colon (principal); Z09 Encounter for follow-up examination after completed treatment for conditions other than malignant neoplasm; Z86.0100 Personal history of colon polyps, unspecified; K57.30 Diverticulosis of large intestine without perforation or abscess without bleeding
CPT/HCPCS: 71046; G0121